=== PATIENT | male | born 1965 | race Caucasian/White ===

== ENCOUNTER 2017-06-18 07:02 | Day surgery (SDC) | payer MEDICARE, OTHER ==
[~2017-06-18 07:02] MED LIST: Lactated Ringers 1,000 ML IV SCH
[2017-06-18] MEDS ORDERED: Midazolam 1 MG/ML 2 ML SDV IV ONE (09:00)
[2017-06-18] MEDS ORDERED: Lidocaine 2% 100 MG/5 ML Syringe IVPUSH ONE (09:00)
[2017-06-18] MEDS ORDERED: Ondansetron 4 MG/2 ML SDV IVPUSH ONE (09:00)
[2017-06-18] MEDS ORDERED: Propofol 200 MG/20 ML SDV IV ONE (09:00)
--- NOTE | 2017-06-18 09:44 | PCM.OPNOTE ---
- General Post-Op/Procedure Note Date of Surgery/Procedure: 06/18/17 Operative Procedure(s): egd with bx Findings: gastritis Pre Op Diagnosis: epigastric abd pain Post-Op Diagnosis: gastritis Anesthesia Technique: MAC Primary Surgeon: Nolberto Worrell Anesthesia Provider: Soumya Chavez Pathology: stomach Complications: None Condition: Good Free Text/Narrative:: see dictation
[2017-06-18 10:29] VITALS: BP 112/83
--- NOTE | 2017-06-18 13:53 | OR ---
DATE OF OPERATION: 06/18/2017 SURGEON: Nolberto Worrell MD PROCEDURE PERFORMED: Esophagogastroduodenoscopy with cold forceps biopsy. PREOPERATIVE DIAGNOSIS: Epigastric abdominal pain. POSTOPERATIVE DIAGNOSIS: Gastritis. INDICATIONS FOR PROCEDURE: This is a 51-year-old white male, who has had a history of epigastric abdominal pain. He was offered and accepted an EGD. DESCRIPTION OF PROCEDURE: After an excellent IV sedation was administered, the bite block was inserted. The flexible endoscope was passed without difficulty down the patient's stomach into his esophagus. The stomach was insufflated. Scope was passed through the pylorus to the second portion of the duodenum and slowly withdrawn. Following findings were noted. Duodenum unremarkable. Stomach demonstrates diffuse gastritis. Multiple biopsies were taken. GE junction measured at 40 cm. Esophagus was unremarkable. The stomach was deflated, scope was removed. The patient tolerated the procedure well, and was taken to recovery room in good condition. /[id number] /JASONL
== END 2017-06-18 10:16 | disposition home or self-care (01) ==
LOC: FB.SDS 07:02
PROVIDERS: ATTEND Surgery
DX: K29.50 Unspecified chronic gastritis without bleeding (principal); E11.9 Type 2 diabetes mellitus without complications; F41.9 Anxiety disorder, unspecified; G89.4 Chronic pain syndrome; I10 Essential (primary) hypertension; Z68.36 Body mass index [BMI] 36.0-36.9, adult; K21.9 Gastro-esophageal reflux disease without esophagitis; N40.0 Benign prostatic hyperplasia without lower urinary tract symptoms; F33.2 Major depressive disorder, recurrent severe without psychotic features; Z79.84 Long term (current) use of oral hypoglycemic drugs; Z79.899 Other long term (current) drug therapy; Z88.8 Allergy status to other drugs, medicaments and biological substances; Z90.49 Acquired absence of other specified parts of digestive tract; Z98.890 Other specified postprocedural states; F17.210 Nicotine dependence, cigarettes, uncomplicated
CPT/HCPCS: 00740; 43239; 82962; J2250; J2405; J2704; J7120; 88305; 88342

== ENCOUNTER 2017-08-01 20:41 | Emergency (ER) | payer MEDICARE, OTHER ==
[2017-08-01] MEDS ORDERED: Ondansetron 8 MG Tab.DIS PO ONE (21:07)
[2017-08-01] MEDS ORDERED: Famotidine 20 MG Tab PO ONE (21:07)
--- NOTE | 2017-08-01 21:09 | EDM.PDOC ---
ED HPI GENERAL MEDICAL PROBLEM - General Stated Complaint: HIGH BLOOD SUGAR Time Seen by Provider: 08/01/17 20:41 Source of Information: Reports: Patient, Family - History of Present Illness INITIAL COMMENTS - FREE TEXT/NARRATIVE: 52 y.o.w.m with multiple medical issues, including NIDDM was seen by his PMD today for a cortisone shot injection in right shoulder. Pt was advised to come the ed if his BS is above 400 and if he is symptomatic. Pt's BS was >400 and he felt nauseated and had epigastric pain, occ dizziness. His accu check was 360 here in the ed. No vomiting. Pt a has h/o of unsteady gate, which is going on for years. He is using a cane. No other acute medical issues at this time. BP 107/71 Pulse 94 RR 16 Pulse ox 97% on RA Onset: Today Onset Date: 08/01/17 Onset Time: 15:00 Duration: Hour(s):, Intermittent Location: Reports: Generalized Quality: Reports: Ache, Burning Severity: Mild Improves with: Reports: Rest Worsens with: Reports: Movement Context: Reports: Activity, Exercise, Other (cortison injection left shoulder) Associated Symptoms: Reports: No Other Symptoms Right Upper Arm Pain Score (Numeric/FACES): 4 - Related Data Allergies Allergy/AdvReac Type Severity Reaction Status Date / Time tramadol Allergy Abdominal Verified 08/01/17 20:51 Pain Home Meds: Home Meds Simvastatin 20 mg PO BEDTIME 09/15/14 [History] traZODone 100 mg PO BEDTIME 11/27/14 [History] amLODIPine [Norvasc] 10 mg PO BEDTIME 04/22/16 [History] glipiZIDE [Glipizide ER] 10 mg PO DAILY 04/22/16 [History] Albuterol/Ipratropium [DuoNeb 3.0-0.5 MG/3 ML] 3 ml IH Q6H PRN 06/17/17 [History ] Aspirin 325 mg PO DAILY 06/17/17 [History] Hydrochlorothiazide/Lisinopril [Lisinopril-HCTZ 20-25 MG] 1 tab PO DAILY [History] Esomeprazole Magnesium [Nexium] 20 mg PO 08/01/17 [History] Past Medical History HEENT History: Reports: Impaired Vision Cardiovascular History: Reports: High Cholesterol, Hypertension, SOB on Exertion Respiratory History: Reports: Asthma, SOB Gastrointestinal History: Reports: GERD Genitourinary History: Reports: Urinary Incontinence Other Genitourinary History: ERECTILE DYSFUNCTION Musculoskeletal History: Reports: Other (See Below) Other Musculoskeletal History: CHRONIC BODY PAIN. RIGHT ANKLE PAIN, BACK, ET NECK PAIN JEAN-CLAUDE. BILATERAL CARPAL TUNNEL SYNDROME Other Neuro History: STATES CONSTANT TREMOR. RESTLESS LEGS . CHRONIC PAIN Psychiatric History: Reports: ADHD, Anxiety, Depression Endocrine/Metabolic History: Reports: Diabetes, Type II Hematologic History: Reports: None Oncologic (Cancer) History: Reports: None Dermatologic History: Reports: None - Infectious Disease History Infectious Disease History: Reports: Chicken Pox - Past Surgical History GI Surgical History: Reports: Cholecystectomy Musculoskeletal Surgical History: Reports: Other (See Below) Other Musculoskeletal Surgeries/Procedures:: NECK FUSION Social & Family History - Family History Family Medical History: Noncontributory - Tobacco Use Smoking Status *Q: Current Every Day Smoker Years of Tobacco use: 35 Packs/Tins Daily: 1.5 Used Tobacco, but Quit: No Second Hand Smoke Exposure: No - Caffeine Use Caffeine Use: Reports: Coffee, Soda - Alcohol Use Days Per Week of Alcohol Use: 4 Number of Drinks Per Day: 6 Total Drinks Per Week: 24 - Recreational Drug Use Recreational Drug Use: No ED ROS GENERAL - Review of Systems Review Of Systems: See Below Constitutional: Reports: No Symptoms HEENT: Reports: No Symptoms Respiratory: Reports: No Symptoms Cardiovascular: Reports: No Symptoms Endocrine: Reports: High Glucose, Polydypsia GI/Abdominal: Reports: Abdominal Pain (epigtsric) Musculoskeletal: Reports: No Symptoms Skin: Reports: No Symptoms Neurological: Reports: No Symptoms Psychiatric: Reports: No Symptoms Hematologic/Lymphatic: Reports: No Symptoms Immunologic: Reports: No Symptoms ED EXAM, GENERAL - Physical Exam Exam: See Below Exam Limited By: Physical Impairment General Appearance: Alert, WD/WN, Mild Distress, Obese Eye Exam: Bilateral Eye: Normal Inspection Ears: Normal External Exam Ear Exam: Bilateral Ear: Auricle Normal Nose: Normal Inspection, Normal Mucosa Throat/Mouth: Normal Inspection Head: Atraumatic, Normocephalic Neck: Normal Inspection, Supple, Non-Tender, Full Range of Motion Respiratory/Chest: No Respiratory Distress, Lungs Clear, Normal Breath Sounds Cardiovascular: Normal Peripheral Pulses, Regular Rate, Rhythm, No Edema Peripheral Pulses: 1+: Femoral (L), Femoral (R) GI/Abdominal: Tender (epigstic, minor symptoms) (Male) Exam: Deferred Rectal (Males) Exam: Deferred Back Exam: Normal Inspection Extremities: Normal Inspection, Normal Range of Motion, Non-Tender, No Pedal Edema Neurological: Alert, Oriented, CN II-XII Intact, Normal Cognition, Abnormal Gait (walks with a cane) Psychiatric: Normal Affect, Normal Mood Skin Exam: Warm, Dry, Intact, Normal Color, No Rash Lymphatic: No Adenopathy Course - Vital Signs Text/Narrative:: 52 y.o.w.m with multiple medical issues, including NIDDM was seen by his PMD today for a cortisone shot injection in right shoulder. Pt was advised to come the ed if his BS is above 400 and if he is symptomatic. Pt's BS was >400 and he felt nauseated and had epigastric pain, occ dizziness, no vomiting. His accu check was 360 here in the ed. No vomiting. Pt a has h/o of unsteady gate, which is going on for years. He is using a cane. No other acute medical issues at this time. BP 107/71 Pulse 94 RR 16 Pulse ox 97% on RA PE: Obese 52 y.o.w.m in NAD with nausea and epigastric pain Labs: Na 126, K 3.8 BUN 24 Cr. 1.4 Glc 391 A1C 10.7 Impression: Hyponatremia, NIDDM with hyperglycemia, noncompliance, elevated HA1C level, Dehydration, H/O unsteady gait (cane) Tx: Regular insulin, NS, Zofran Reexam: Improved, BS was 246mg/dl on D/C, nausea and dizziness subsided Plan: D/C with instructions Last Recorded V/S: Last Vital Signs Temp 36.3 C 08/01/17 23:20 Pulse 94 08/01/17 21:00 Resp 18 08/01/17 23:20 BP 115/78 08/01/17 23:20 Pulse Ox 95 08/01/17 23:20 - Orders/Labs/Meds Labs: Laboratory Tests 08/01/17 08/01/17 08/01/17 Range/Units 20:49 21:18 21:18 WBC 11.1 (4.5-12.0) X10-3/uL RBC 5.05 (4.30-5.75) x10(6)uL Hgb 15.3 (11.5-15.5) g/dL Hct 43.1 (30.0-51.3) % MCV 85.4 (80-96) fL MCH 30.3 (27.7-33.6) pg MCHC 35.5 H (32.2-35.4) g/dL RDW 12.9 (11.5-15.5) % Plt Count 208 (125-369) X10(3)uL MPV 10.3 (7.4-10.4) fL Neut % (Auto) 75.0 (46-82) % Lymph % (Auto) 13.3 (13-37) % Giles % (Auto) 11.1 (4-12) % Eos % (Auto) 0 L (1.0-5.0) % Baso % (Auto) 0 (0-2) % Neut # (Auto) 8.4 H (1.6-8.3) # Lymph # (Auto) 1.5 (0.6-5.0) # Giles # (Auto) 1.2 (0.0-1.3) # Eos # (Auto) 0.0 (0.0-0.8) # Baso # (Auto) 0.0 (0.0-0.2) # Sodium 126 L D (135-145) mmol/L Potassium 3.8 (3.5-5.3) mmol/L Chloride 96 L (100-110) mmol/L Carbon Dioxide 20 L (23-29) mmol/L BUN 24 H D (5-20) mg/dL Creatinine 1.4 H (0.6-1.3) mg/dL Est Cr Clr Drug Dosing TNP Estimated GFR (MDRD) 53 L (>60) BUN/Creatinine Ratio 17.1 (9-20) Glucose 391 H D (80-116) mg/dL POC Glucose 326 H D (80-116) mg/dL Hemoglobin A1c (4.0-6.0) % Calcium 8.5 L (8.6-10.2) mg/dL 08/01/17 08/01/17 08/01/17 Range/Units 21:18 21:58 23:09 WBC (4.5-12.0) X10-3/uL RBC (4.30-5.75) x10(6)uL Hgb (11.5-15.5) g/dL Hct (30.0-51.3) % MCV (80-96) fL MCH (27.7-33.6) pg MCHC (32.2-35.4) g/dL RDW (11.5-15.5) % Plt Count (125-369) X10(3)uL MPV (7.4-10.4) fL Neut % (Auto) (46-82) % Lymph % (Auto) (13-37) % Giles % (Auto) (4-12) % Eos % (Auto) (1.0-5.0) % Baso % (Auto) (0-2) % Neut # (Auto) (1.6-8.3) # Lymph # (Auto) (0.6-5.0) # Giles # (Auto) (0.0-1.3) # Eos # (Auto) (0.0-0.8) # Baso # (Auto) (0.0-0.2) # Sodium (135-145) mmol/L Potassium (3.5-5.3) mmol/L Chloride (100-110) mmol/L Carbon Dioxide (23-29) mmol/L BUN (5-20) mg/dL Creatinine (0.6-1.3) mg/dL Est Cr Clr Drug Dosing Estimated GFR (MDRD) (>60) BUN/Creatinine Ratio (9-20) Glucose (80-116) mg/dL POC Glucose 320 H 254 H (80-116) mg/dL Hemoglobin A1c 10.7 H (4.0-6.0) % Calcium (8.6-10.2) mg/dL Meds: Medications Discontinued Medications Generic Name Dose Route Start Last Admin Trade Name Freq PRN Reason Stop Dose Admin Famotidine 20 mg 08/01/17 21:07 08/01/17 21:33 Pepcid PO 08/01/17 21:08 20 mg ONETIME ONE Administration Sodium Chloride 1,000 mls @ 999 mls/hr 08/01/17 21:40 08/01/17 21:15 Normal Saline IV 08/01/17 22:40 999 mls/hr .BOLUS ONE Administration Insulin Human Regular 5 unit 08/01/17 21:21 08/01/17 21:33 Humulin R SUBCUT 08/01/17 21:22 5 units BIDAC STA Administration Protocol Ondansetron HCl 8 mg 08/01/17 21:07 08/01/17 21:32 Zofran Odt PO 08/01/17 21:08 8 mg ONETIME ONE Administration Departure - Departure Time of Disposition: 23:15 Disposition: Home, Self-Care 01 Condition: Good Clinical Impression: Hyponatremia, Diabetes mellitus, Noncompliance, Hyperglycemia, Elevated hemoglobin A1c - Discharge Information Instructions: Hyponatremia, Hyperglycemia, [id number], Dehydration, Adult Referrals: Aram Ballesteros MD [Primary Care Provider] - Forms: ED Department Discharge Additional Instructions: Please increase water intake, please f/u with your doctor in next day or with Urgent care, please check your blood sugar twice daily, please come back if your symptoms get worse acutely.
[2017-08-01] MEDS ORDERED: Insulin Regular, Human 100 Units/ML 3 ML Vial SUBCUT STA (21:21)
[2017-08-01] MEDS ORDERED: Sodium Chloride 0.9% 1,000 ML IV ONE (21:40)
[2017-08-01 23:21] VITALS: BP 115/78
== END 2017-08-01 23:23 | disposition home or self-care (01) ==
LOC: FB.ED 20:41
DX: E11.65 Type 2 diabetes mellitus with hyperglycemia (principal); E87.1 Hypo-osmolality and hyponatremia; E86.0 Dehydration; R79.89 Other specified abnormal findings of blood chemistry; E78.00 Pure hypercholesterolemia, unspecified; I10 Essential (primary) hypertension; J45.909 Unspecified asthma, uncomplicated; F41.9 Anxiety disorder, unspecified; F32.9 Major depressive disorder, single episode, unspecified; F17.210 Nicotine dependence, cigarettes, uncomplicated; Z88.6 Allergy status to analgesic agent
CPT/HCPCS: 36415; 80048; 82962; 83036; 85025; 96365; 96372; 99284; A9270; J1815; J7040; 99283

== ENCOUNTER 2018-02-24 21:31 | Emergency (ER) | payer MEDICARE ==
--- NOTE | 2018-02-24 21:59 | EDM.PDOC ---
ED HPI GENERAL MEDICAL PROBLEM - General Chief Complaint: General Stated Complaint: HBS Time Seen by Provider: 02/24/18 21:31 Source of Information: Reports: Patient, Family History Limitations: Reports: No Limitations - History of Present Illness INITIAL COMMENTS - FREE TEXT/NARRATIVE: 52 y.o.w.m with DM, multiple medical issues, came to the ed with is due frequent urinations, drinking about 30 liters of water a day. Pt was on metformin till 2-3 weeks ago and is shahida on Glipizide 10 mg daily. Pt was told by his PMD he needs to be on insulin. However, pt' travis "can not afford insulin " and the insurance "will not pay insulin" His BS was at home up to 556 today. Pt denied N/V/D or any other constitutional symptoms, no other acute medical Issues at his time. He feels always thirsty, however. BP 122/75 RR 20 Pulse ox 100% temp 36.8 Pulse 85 BPM Onset Date: 02/04/18 Onset Time: 08:00 Duration: Week(s):, Intermittent Location: Reports: Generalized Quality: Reports: Other (frequent urination, drings 30 liters of water a day. ) Severity: Moderate Improves with: Reports: Medication (insulin) Worsens with: Reports: Other (not being omliant) - Related Data Allergies Allergy/AdvReac Type Severity Reaction Status Date / Time tramadol Allergy Stomach Verified 02/24/18 21:55 Upset Home Meds: Home Meds Simvastatin 20 mg PO BEDTIME 09/15/14 [History] amLODIPine [Norvasc] 10 mg PO BEDTIME 04/22/16 [History] glipiZIDE [Glipizide ER] 10 mg PO DAILY 04/22/16 [History] Albuterol/Ipratropium [DuoNeb 3.0-0.5 MG/3 ML] 3 ml IH Q6H PRN 06/17/17 [History ] Aspirin 325 mg PO DAILY 06/17/17 [History] Hydrochlorothiazide/Lisinopril [Lisinopril-HCTZ 20-25 MG] 1 tab PO DAILY [History] Baclofen 10 mg PO BEDTIME 02/24/18 [History] Meloxicam 15 mg PO DAILY 02/24/18 [History] Pantoprazole Sodium [Protonix] 40 mg PO DAILY 02/24/18 [History] predniSONE 20 mg PO DAILY 02/24/18 [History] Past Medical History HEENT History: Reports: Impaired Vision Cardiovascular History: Reports: High Cholesterol, Hypertension, SOB on Exertion Respiratory History: Reports: Asthma, SOB Gastrointestinal History: Reports: GERD Genitourinary History: Reports: Urinary Incontinence Other Genitourinary History: ERECTILE DYSFUNCTION Musculoskeletal History: Reports: Other (See Below) Other Musculoskeletal History: CHRONIC BODY PAIN. RIGHT ANKLE PAIN, BACK, ET NECK PAIN JEAN-CLAUDE. BILATERAL CARPAL TUNNEL SYNDROME Other Neuro History: STATES CONSTANT TREMOR. RESTLESS LEGS . CHRONIC PAIN Psychiatric History: Reports: ADHD, Anxiety, Depression Endocrine/Metabolic History: Reports: Diabetes, Type II Hematologic History: Reports: None Oncologic (Cancer) History: Reports: None Dermatologic History: Reports: None - Infectious Disease History Infectious Disease History: Reports: Chicken Pox - Past Surgical History GI Surgical History: Reports: Cholecystectomy Musculoskeletal Surgical History: Reports: Other (See Below) Other Musculoskeletal Surgeries/Procedures:: NECK FUSION Social & Family History - Family History Family Medical History: Noncontributory - Tobacco Use Smoking Status *Q: Current Every Day Smoker Years of Tobacco use: 35 Packs/Tins Daily: 1.5 Used Tobacco, but Quit: No Second Hand Smoke Exposure: No - Caffeine Use Caffeine Use: Reports: Coffee, Soda - Alcohol Use Days Per Week of Alcohol Use: 4 Number of Drinks Per Day: 6 Total Drinks Per Week: 24 - Recreational Drug Use Recreational Drug Use: No ED ROS GENERAL - Review of Systems Review Of Systems: See Below Constitutional: Reports: No Symptoms HEENT: Reports: No Symptoms Respiratory: Reports: No Symptoms Cardiovascular: Reports: No Symptoms Endocrine: Reports: High Glucose GI/Abdominal: Reports: No Symptoms : Reports: Frequency Musculoskeletal: Reports: No Symptoms Skin: Reports: No Symptoms Neurological: Reports: No Symptoms Psychiatric: Reports: No Symptoms Hematologic/Lymphatic: Reports: No Symptoms Immunologic: Reports: No Symptoms ED EXAM, GENERAL - Physical Exam Exam: See Below Exam Limited By: No Limitations General Appearance: Alert, WD/WN, Mild Distress Eye Exam: Bilateral Eye: Normal Inspection Ears: Normal External Exam Ear Exam: Bilateral Ear: Auricle Normal Nose: Normal Inspection, Normal Mucosa, No Blood Throat/Mouth: Normal Inspection, Normal Lips Head: Atraumatic, Normocephalic Neck: Normal Inspection, Supple, Non-Tender, Full Range of Motion Respiratory/Chest: No Respiratory Distress, Lungs Clear, Normal Breath Sounds, No Accessory Muscle Use, Chest Non-Tender Cardiovascular: Normal Peripheral Pulses, Regular Rate, Rhythm, No Edema, No Gallop, No Rub Peripheral Pulses: 1+: Brachial (R) GI/Abdominal: Normal Bowel Sounds, Soft, Non-Tender, No Organomegaly, No Distention, No Abnormal Bruit, No Mass, Pelvis Stable (Male) Exam: Deferred Rectal (Males) Exam: Deferred Back Exam: Normal Inspection, Full Range of Motion Extremities: Normal Inspection, Normal Range of Motion, Non-Tender Neurological: Alert, Oriented, CN II-XII Intact, Normal Cognition, Normal Gait, No Motor/Sensory Deficits Psychiatric: Normal Affect, Anxious Skin Exam: Warm, Dry, Intact, Normal Color, No Rash Lymphatic: No Adenopathy Course - Vital Signs Text/Narrative:: 52 y.o.w.m with DM, multiple medical issues, came to the ed with is due frequent urinations, drinking about 30 liters of water a day. Pt was on metformin till 2-3 weeks ago and is shahida on Glipizide 10 mg daily. Pt was told by his PMD he needs to be on insulin. However, pt' travis "can not afford insulin " and the insurance "will not pay insulin" His BS was at home up to 556 today. Pt denied N/V/D or any other constitutional symptoms, no other acute medical Issues at his time. He feels always thirsty, however. BP 122/75 RR 20 Pulse ox 100% temp 36.8 Pulse 85 BPM PE: Obese 52 y.o.w.m with multiple medical issues in cluding diabetes, non compliant Labs: WBC 13.9 Neutro 84% Na 125 K 4.4 BS 666 Cl 91 GFR > 60 HGB A1C 10.4. BUN 15 Cr. 1.1 Impression: IDDM with hyperglycemia, Noncompliance. Tx: Insulin, Metformine, PO water, pt refused I.Vs refused admission Reexam: BS was 405 (from 666) Last Recorded V/S: Last Vital Signs Temp 36.6 C 02/24/18 23:00 Pulse 88 02/25/18 00:40 Resp 20 02/25/18 00:40 BP 130/78 02/25/18 00:40 Pulse Ox 98 02/25/18 00:40 - Orders/Labs/Meds Orders: Active Orders 24 hr Category Date Time Status Accu Check [Blood Glucose Check, Bedside] [RC] ONETIME Care 02/24/18 21:42 Active UA W/MICROSCOPIC [URIN] Stat Lab 02/24/18 21:55 Ordered Labs: Laboratory Tests 02/24/18 02/24/18 02/24/18 Range/Units 21:42 21:55 22:00 WBC 13.9 H (4.5-12.0) X10-3/uL RBC 4.95 (4.30-5.75) x10(6)uL Hgb 15.3 (11.5-15.5) g/dL Hct 43.0 (30.0-51.3) % MCV 87.0 (80-96) fL MCH 30.9 (27.7-33.6) pg MCHC 35.6 H (32.2-35.4) g/dL RDW 12.9 (11.5-15.5) % Plt Count 220 (125-369) X10(3)uL MPV 10.2 (7.4-10.4) fL Neut % (Auto) 84.7 H (46-82) % Lymph % (Auto) 9.4 L (13-37) % [place] % (Auto) 5.4 (4-12) % Eos % (Auto) 0 L (1.0-5.0) % Baso % (Auto) 0 (0-2) % Neut # (Auto) 11.8 H (1.6-8.3) # Lymph # (Auto) 1.3 (0.6-5.0) # [place] # (Auto) 0.8 (0.0-1.3) # Eos # (Auto) 0.0 (0.0-0.8) # Baso # (Auto) 0.0 (0.0-0.2) # Sodium (135-145) mmol/L Potassium (3.5-5.3) mmol/L Chloride (100-110) mmol/L Carbon Dioxide (21-32) mmol/L BUN (7-18) mg/dL Creatinine (0.70-1.30) mg/dL Est Cr Clr Drug Dosing mL/min Estimated GFR (MDRD) (>60) BUN/Creatinine Ratio (9-20) Glucose (80-116) mg/dL POC Glucose 477 H* D (80-116) mg/dL Hemoglobin A1c (4.5-6.2) % Calcium (8.6-10.2) mg/dL Urine Color Yellow (YELLOW) Urine Appearance Clear (CLEAR) Urine pH 6.5 (5.0-6.5) Ur Specific [place] 1.010 (1.010-1.025) Urine Protein Negative (NEGATIVE) mg/dL Urine Glucose (UA) >1000 H (NEGATIVE) mg/dL Urine Ketones Negative (NEGATIVE) mg/dL Urine Occult Blood Moderate H (NEGATIVE) Urine Nitrite Negative (NEGATIVE) Urine Bilirubin Negative (NEGATIVE) Urine Urobilinogen Normal (NEGATIVE) mg/dL Ur Leukocyte Esterase Negative (NEGATIVE) Urine RBC 0-5 (0) Urine WBC 0-5 (0) Ur Squamous Epith Cells Rare (NS,R,O) Urine Bacteria Few H (NS) 02/24/18 02/24/18 02/24/18 Range/Units 22:00 22:00 23:16 WBC (4.5-12.0) X10-3/uL RBC (4.30-5.75) x10(6)uL Hgb (11.5-15.5) g/dL Hct (30.0-51.3) % MCV (80-96) fL MCH (27.7-33.6) pg MCHC (32.2-35.4) g/dL RDW (11.5-15.5) % Plt Count (125-369) X10(3)uL MPV (7.4-10.4) fL Neut % (Auto) (46-82) % Lymph % (Auto) (13-37) % [place] % (Auto) (4-12) % Eos % (Auto) (1.0-5.0) % Baso % (Auto) (0-2) % Neut # (Auto) (1.6-8.3) # Lymph # (Auto) (0.6-5.0) # [place] # (Auto) (0.0-1.3) # Eos # (Auto) (0.0-0.8) # Baso # (Auto) (0.0-0.2) # Sodium 125 L (135-145) mmol/L Potassium 4.4 (3.5-5.3) mmol/L Chloride 91 L (100-110) mmol/L Carbon Dioxide 24 (21-32) mmol/L BUN 15 (7-18) mg/dL Creatinine 1.1 (0.70-1.30) mg/dL Est Cr Clr Drug Dosing 81.77 mL/min Estimated GFR (MDRD) > 60 (>60) BUN/Creatinine Ratio 13.6 (9-20) Glucose 641 H* (80-116) mg/dL POC Glucose 471 H* (80-116) mg/dL Hemoglobin A1c 10.4 H (4.5-6.2) % Calcium 8.4 L (8.6-10.2) mg/dL Urine Color (YELLOW) Urine Appearance (CLEAR) Urine pH (5.0-6.5) Ur Specific [place] (1.010-1.025) Urine Protein (NEGATIVE) mg/dL Urine Glucose (UA) (NEGATIVE) mg/dL Urine Ketones (NEGATIVE) mg/dL Urine Occult Blood (NEGATIVE) Urine Nitrite (NEGATIVE) Urine Bilirubin (NEGATIVE) Urine Urobilinogen (NEGATIVE) mg/dL Ur Leukocyte Esterase (NEGATIVE) Urine RBC (0) Urine WBC (0) Ur Squamous Epith Cells (NS,R,O) Urine Bacteria (NS) 02/24/18 02/25/18 02/25/18 Range/Units 23:25 00:26 00:36 WBC (4.5-12.0) X10-3/uL RBC (4.30-5.75) x10(6)uL Hgb (11.5-15.5) g/dL Hct (30.0-51.3) % MCV (80-96) fL MCH (27.7-33.6) pg MCHC (32.2-35.4) g/dL RDW (11.5-15.5) % Plt Count (125-369) X10(3)uL MPV (7.4-10.4) fL Neut % (Auto) (46-82) % Lymph % (Auto) (13-37) % [place] % (Auto) (4-12) % Eos % (Auto) (1.0-5.0) % Baso % (Auto) (0-2) % Neut # (Auto) (1.6-8.3) # Lymph # (Auto) (0.6-5.0) # [place] # (Auto) (0.0-1.3) # Eos # (Auto) (0.0-0.8) # Baso # (Auto) (0.0-0.2) # Sodium (135-145) mmol/L Potassium (3.5-5.3) mmol/L Chloride (100-110) mmol/L Carbon Dioxide (21-32) mmol/L BUN (7-18) mg/dL Creatinine (0.70-1.30) mg/dL Est Cr Clr Drug Dosing mL/min Estimated GFR (MDRD) (>60) BUN/Creatinine Ratio (9-20) Glucose 565 H* (80-116) mg/dL POC Glucose 365 H D 365 H (80-116) mg/dL Hemoglobin A1c (4.5-6.2) % Calcium (8.6-10.2) mg/dL Urine Color (YELLOW) Urine Appearance (CLEAR) Urine pH (5.0-6.5) Ur Specific [place] (1.010-1.025) Urine Protein (NEGATIVE) mg/dL Urine Glucose (UA) (NEGATIVE) mg/dL Urine Ketones (NEGATIVE) mg/dL Urine Occult Blood (NEGATIVE) Urine Nitrite (NEGATIVE) Urine Bilirubin (NEGATIVE) Urine Urobilinogen (NEGATIVE) mg/dL Ur Leukocyte Esterase (NEGATIVE) Urine RBC (0) Urine WBC (0) Ur Squamous Epith Cells (NS,R,O) Urine Bacteria (NS) 02/25/18 Range/Units 00:37 WBC (4.5-12.0) X10-3/uL RBC (4.30-5.75) x10(6)uL Hgb (11.5-15.5) g/dL Hct (30.0-51.3) % MCV (80-96) fL MCH (27.7-33.6) pg MCHC (32.2-35.4) g/dL RDW (11.5-15.5) % Plt Count (125-369) X10(3)uL MPV (7.4-10.4) fL Neut % (Auto) (46-82) % Lymph % (Auto) (13-37) % [place] % (Auto) (4-12) % Eos % (Auto) (1.0-5.0) % Baso % (Auto) (0-2) % Neut # (Auto) (1.6-8.3) # Lymph # (Auto) (0.6-5.0) # [place] # (Auto) (0.0-1.3) # Eos # (Auto) (0.0-0.8) # Baso # (Auto) (0.0-0.2) # Sodium (135-145) mmol/L Potassium (3.5-5.3) mmol/L Chloride (100-110) mmol/L Carbon Dioxide (21-32) mmol/L BUN (7-18) mg/dL Creatinine (0.70-1.30) mg/dL Est Cr Clr Drug Dosing mL/min Estimated GFR (MDRD) (>60) BUN/Creatinine Ratio (9-20) Glucose 402 H* D (80-116) mg/dL POC Glucose (80-116) mg/dL Hemoglobin A1c (4.5-6.2) % Calcium (8.6-10.2) mg/dL Urine Color (YELLOW) Urine Appearance (CLEAR) Urine pH (5.0-6.5) Ur Specific [place] (1.010-1.025) Urine Protein (NEGATIVE) mg/dL Urine Glucose (UA) (NEGATIVE) mg/dL Urine Ketones (NEGATIVE) mg/dL Urine Occult Blood (NEGATIVE) Urine Nitrite (NEGATIVE) Urine Bilirubin (NEGATIVE) Urine Urobilinogen (NEGATIVE) mg/dL Ur Leukocyte Esterase (NEGATIVE) Urine RBC (0) Urine WBC (0) Ur Squamous Epith Cells (NS,R,O) Urine Bacteria (NS) Meds: Medications Discontinued Medications Generic Name Dose Route Start Last Admin Trade Name Freq PRN Reason Stop Dose Admin Sodium Chloride 1,000 mls @ 999 mls/hr 02/24/18 22:36 02/24/18 23:26 Normal Saline IV 02/24/18 23:36 Not Given .BOLUS ONE Insulin Human Regular 100 unit 02/24/18 22:21 02/24/18 22:38 Humulin R SUBCUT 02/24/18 22:22 10 units ONETIME STA Administration Insulin Human Regular 10 unit 02/24/18 23:44 02/24/18 23:49 Humulin R SUBCUT 02/24/18 23:45 10 units BIDAC STA Administration Metformin HCl 1,000 mg 02/24/18 23:06 02/24/18 23:14 Glucophage PO 02/24/18 23:07 1,000 mg ONETIME STA Administration Departure - Departure Time of Disposition: 00:56 Disposition: Home, Self-Care 01 Clinical Impression: IDDM (insulin dependent diabetes mellitus) Hyperglycemia due to type 2 diabetes mellitus Qualifiers: Diabetes mellitus fci insulin use: unspecified fci insulin use status Qualified Code(s): E11.65 - Type 2 diabetes mellitus with hyperglycemia - Discharge Information Referrals: Aram Balletseros MD [Primary Care Provider] - Forms: ED Department Discharge Additional Instructions: Please f/u in am with your PMD regarding Insulin prescriptions. Please f/u with an edocinologist. come back if your symptoms gte worse. - My Orders Last 24 Hours: My Active Orders 02/24/18 21:42 Accu Check [Blood Glucose Check, Bedside] [RC] ONETIME 02/24/18 21:55 UA W/MICROSCOPIC [URIN] Stat - Assessment/Plan Last 24 Hours: My Active Orders 02/24/18 21:42 Accu Check [Blood Glucose Check, Bedside] [RC] ONETIME 02/24/18 21:55 UA W/MICROSCOPIC [URIN] Stat
[2018-02-24] MEDS ORDERED: Insulin Regular, Human 100 Units/ML 3 ML Vial SUBCUT STA ×2 (22:21→23:44)
[2018-02-24] MEDS ORDERED: Sodium Chloride 0.9% 1,000 ML IV ONE (22:36)
[2018-02-24] MEDS ORDERED: metFORMIN 500 MG Tab PO STA (23:06)
[2018-02-25 02:20] VITALS: BP 130/78
== END 2018-02-25 01:10 | disposition home or self-care (01) ==
LOC: FB.ED 21:31
DX: E11.9 Type 2 diabetes mellitus without complications (principal); F17.210 Nicotine dependence, cigarettes, uncomplicated; I10 Essential (primary) hypertension; Z88.5 Allergy status to narcotic agent; Z79.899 Other long term (current) drug therapy
CPT/HCPCS: 36415; 80048; 81001; 82947; 82962; 83036; 85025; A9270; J1815; 99283

== ENCOUNTER 2018-05-11 20:05 | Emergency (ER) | payer MEDICARE ==
[2018-05-11] MEDS ORDERED: valACYclovir 500 MG Tab PO ONE (20:39)
[2018-05-11] MEDS ORDERED: predniSONE 20 MG Tab PO ONE (20:39)
--- NOTE | 2018-05-11 20:48 | EDM.PDOC ---
ED HPI GENERAL MEDICAL PROBLEM - General Chief Complaint: General Stated Complaint: facial numbness right side Time Seen by Provider: 05/11/18 20:05 Source of Information: Reports: Patient, Family History Limitations: Reports: No Limitations - History of Present Illness INITIAL COMMENTS - FREE TEXT/NARRATIVE: 52 y.o.w.m with a h/o IDDM, [id number] to the ed with his after 12 hours of a right sided facial droop. Pt woke up with right facial numbness. No trauma, no N/V/D no focal extremity weakness. Pt denies H/O espino. No dizziness , He has bilat ear pain as well and is using Q tips to clean his ears. Pt is a poor historian. BP 174/93 pulse 84 Temp 98.8 pulse ox 96% RR 24. Onset Date: 05/11/18 Onset Time: 07:00 Duration: Hour(s):, Getting Worse, Intermittent Location: Reports: Face Quality: Reports: Dull Severity: Mild Improves with: Reports: None Worsens with: Reports: None Context: Reports: Other Associated Symptoms: Reports: No Other Symptoms - Related Data Allergies Allergy/AdvReac Type Severity Reaction Status Date / Time tramadol Allergy Stomach Verified 02/24/18 21:55 Upset Home Meds: Home Meds Simvastatin 20 mg PO BEDTIME 09/15/14 [History] amLODIPine [Norvasc] 10 mg PO BEDTIME 04/22/16 [History] glipiZIDE [Glipizide ER] 10 mg PO DAILY 04/22/16 [History] Albuterol/Ipratropium [DuoNeb 3.0-0.5 MG/3 ML] 3 ml IH Q6H PRN 06/17/17 [History ] Aspirin 325 mg PO DAILY 06/17/17 [History] Hydrochlorothiazide/Lisinopril [Lisinopril-HCTZ 20-25 MG] 1 tab PO DAILY [History] Baclofen 10 mg PO BEDTIME 02/24/18 [History] Meloxicam 15 mg PO DAILY 02/24/18 [History] Pantoprazole Sodium [Protonix] 40 mg PO DAILY 02/24/18 [History] predniSONE 20 mg PO DAILY 02/24/18 [History] Hydrocort/Neomycin/Polymyxin B [Cortisporin Otic Soln] 3 drop .XX TID #10 bottle 05/11/18 [Rx] predniSONE 60 mg PO DAILY #5 tab 05/11/18 [Rx] valACYclovir [Valtrex] 500 mg PO BID #10 tab 05/11/18 [Rx] Past Medical History HEENT History: Reports: Impaired Vision Cardiovascular History: Reports: High Cholesterol, Hypertension, SOB on Exertion Respiratory History: Reports: Asthma, SOB Gastrointestinal History: Reports: GERD Genitourinary History: Reports: Urinary Incontinence Other Genitourinary History: ERECTILE DYSFUNCTION Musculoskeletal History: Reports: Other (See Below) Other Musculoskeletal History: CHRONIC BODY PAIN. RIGHT ANKLE PAIN, BACK, ET NECK PAIN JEAN-CLAUDE. BILATERAL CARPAL TUNNEL SYNDROME Other Neuro History: STATES CONSTANT TREMOR. RESTLESS LEGS . CHRONIC PAIN Psychiatric History: Reports: ADHD, Anxiety, Depression Endocrine/Metabolic History: Reports: Diabetes, Type II Hematologic History: Reports: None Oncologic (Cancer) History: Reports: None Dermatologic History: Reports: None - Infectious Disease History Infectious Disease History: Reports: Chicken Pox - Past Surgical History GI Surgical History: Reports: Cholecystectomy Musculoskeletal Surgical History: Reports: Other (See Below) Other Musculoskeletal Surgeries/Procedures:: NECK FUSION Social & Family History - Family History Family Medical History: Noncontributory - Caffeine Use Caffeine Use: Reports: Coffee, Soda ED ROS GENERAL - Review of Systems Review Of Systems: See Below Constitutional: Reports: No Symptoms HEENT: Reports: No Symptoms Respiratory: Reports: No Symptoms Cardiovascular: Reports: No Symptoms Endocrine: Reports: No Symptoms GI/Abdominal: Reports: No Symptoms : Reports: No Symptoms Musculoskeletal: Reports: No Symptoms Skin: Reports: No Symptoms Neurological: Reports: Numbness (right face) Psychiatric: Reports: No Symptoms Hematologic/Lymphatic: Reports: No Symptoms Immunologic: Reports: No Symptoms ED EXAM, GENERAL - Physical Exam Exam: See Below Exam Limited By: No Limitations General Appearance: Alert, WD/WN, Mild Distress, Obese Eye Exam: Right Eye: Periorbital Changes (unable to close the right eye in full) Ears: Other (Ke Otitis externa) Ear Exam: Bilateral Ear: Auricle Normal, Erythema Nose: Normal Inspection Throat/Mouth: Normal Lips, Normal Voice, No Airway Compromise, Other (poor dentition) Head: Atraumatic, Other (right facial droop) Neck: Normal Inspection, Supple Respiratory/Chest: No Respiratory Distress, Lungs Clear, Normal Breath Sounds, Chest Non-Tender Cardiovascular: Normal Peripheral Pulses, Regular Rate, Rhythm, No Edema, No Gallop, No Murmur Peripheral Pulses: 1+: Brachial (R) GI/Abdominal: Normal Bowel Sounds, Soft, Non-Tender, No Organomegaly, No Abnormal Bruit, No Mass (Male) Exam: Deferred Rectal (Males) Exam: Deferred Back Exam: Normal Inspection, Full Range of Motion Extremities: Normal Inspection, Normal Range of Motion, Non-Tender, No Pedal Edema Neurological: Alert, Oriented, CN II-XII Intact, Normal Cognition, Abnormal Gait (is using a cane, no new finding) Psychiatric: Normal Affect, Normal Mood Skin Exam: Warm, Dry, Intact, Normal Color, No Rash Lymphatic: No Adenopathy Course - Vital Signs Text/Narrative:: 52 y.o.w.m with a h/o IDDM, [id number] to the ed with his after 12 hours of a right sided facial droop. Pt woke up with right facial numbness. No trauma, no N/V/D no focal extremity weakness. Pt denies H/O espino. No dizziness , He has bilat ear pain as well and is using Q tips to clean his ears. Pt is a poor historian. Pt did not take his PM meds. BP 174/93 pulse 84 Temp 98.8 pulse ox 96% RR 24. PE: WNWD W M with right facial droop and unable to close his right eye in full. Imaging: CT head: NAD Labs: GLC was 334. GFR > 60 HA1C 8.6 Ca 8.4 UA: U Glc was >1000 Impression: Young's palsy, IDDM, HTN. Otitis externa bilat. Tx: Prednison, Valacyclovir, Reg Insulin Reexam: Improved Plan: D/C with instructions. - Orders/Labs/Meds Orders: Active Orders 24 hr Category Date Time Status Head wo Cont [CT] Stat Exams 05/11/18 20:29 Taken UA W/MICROSCOPIC [URIN] Stat Lab 05/11/18 21:00 Ordered Labs: Laboratory Tests 05/11/18 05/11/18 05/11/18 Range/Units 20:50 20:50 20:50 WBC 8.4 (4.5-12.0) X10-3/uL RBC 5.27 (4.30-5.75) x10(6)uL Hgb 15.3 (11.5-15.5) g/dL Hct 45.5 (30.0-51.3) % MCV 86.3 (80-96) fL MCH 29.1 (27.7-33.6) pg MCHC 33.7 (32.2-35.4) g/dL RDW 13.0 (11.5-15.5) % Plt Count 200 (125-369) X10(3)uL MPV 9.5 (7.4-10.4) fL Neut % (Auto) 63.2 (46-82) % Lymph % (Auto) 26.9 (13-37) % [place] % (Auto) 7.1 (4-12) % Eos % (Auto) 2 (1.0-5.0) % Baso % (Auto) 1 (0-2) % Neut # (Auto) 5.3 (1.6-8.3) # Lymph # (Auto) 2.2 (0.6-5.0) # [place] # (Auto) 0.6 (0.0-1.3) # Eos # (Auto) 0.2 (0.0-0.8) # Baso # (Auto) 0.1 (0.0-0.2) # Sodium 137 D (135-145) mmol/L Potassium 3.9 (3.5-5.3) mmol/L Chloride 100 D (100-110) mmol/L Carbon Dioxide 27 (21-32) mmol/L BUN 11 (7-18) mg/dL Creatinine 1.0 (0.70-1.30) mg/dL Est Cr Clr Drug Dosing TNP Estimated GFR (MDRD) > 60 (>60) BUN/Creatinine Ratio 11.0 (9-20) Glucose 334 H (80-116) mg/dL Hemoglobin A1c (4.5-6.2) % Lactic Acid 2.0 (0.4-2.2) mmol/L Calcium 8.5 L (8.6-10.2) mg/dL Urine Color (YELLOW) Urine Appearance (CLEAR) Urine pH (5.0-6.5) Ur Specific [place] (1.010-1.025) Urine Protein (NEGATIVE) mg/dL Urine Glucose (UA) (NEGATIVE) mg/dL Urine Ketones (NEGATIVE) mg/dL Urine Occult Blood (NEGATIVE) Urine Nitrite (NEGATIVE) Urine Bilirubin (NEGATIVE) Urine Urobilinogen (NEGATIVE) mg/dL Ur Leukocyte Esterase (NEGATIVE) Urine RBC (0) Urine WBC (0) Ur Squamous Epith Cells (NS,R,O) Urine Bacteria (NS) 05/11/18 05/11/18 Range/Units 20:50 21:00 WBC (4.5-12.0) X10-3/uL RBC (4.30-5.75) x10(6)uL Hgb (11.5-15.5) g/dL Hct (30.0-51.3) % MCV (80-96) fL MCH (27.7-33.6) pg MCHC (32.2-35.4) g/dL RDW (11.5-15.5) % Plt Count (125-369) X10(3)uL MPV (7.4-10.4) fL Neut % (Auto) (46-82) % Lymph % (Auto) (13-37) % [place] % (Auto) (4-12) % Eos % (Auto) (1.0-5.0) % Baso % (Auto) (0-2) % Neut # (Auto) (1.6-8.3) # Lymph # (Auto) (0.6-5.0) # [place] # (Auto) (0.0-1.3) # Eos # (Auto) (0.0-0.8) # Baso # (Auto) (0.0-0.2) # Sodium (135-145) mmol/L Potassium (3.5-5.3) mmol/L Chloride (100-110) mmol/L Carbon Dioxide (21-32) mmol/L BUN (7-18) mg/dL Creatinine (0.70-1.30) mg/dL Est Cr Clr Drug Dosing Estimated GFR (MDRD) (>60) BUN/Creatinine Ratio (9-20) Glucose (80-116) mg/dL Hemoglobin A1c 8.6 H (4.5-6.2) % Lactic Acid (0.4-2.2) mmol/L Calcium (8.6-10.2) mg/dL Urine Color Yellow (YELLOW) Urine Appearance Clear (CLEAR) Urine pH 6.0 (5.0-6.5) Ur Specific [place] 1.015 (1.010-1.025) Urine Protein Negative (NEGATIVE) mg/dL Urine Glucose (UA) >1000 H (NEGATIVE) mg/dL Urine Ketones Negative (NEGATIVE) mg/dL Urine Occult Blood Negative (NEGATIVE) Urine Nitrite Negative (NEGATIVE) Urine Bilirubin Negative (NEGATIVE) Urine Urobilinogen Normal (NEGATIVE) mg/dL Ur Leukocyte Esterase Negative (NEGATIVE) Urine RBC 0-5 (0) Urine WBC 0-5 (0) Ur Squamous Epith Cells Rare (NS,R,O) Urine Bacteria Rare H (NS) Meds: Medications Discontinued Medications Generic Name Dose Route Start Last Admin Trade Name Freq PRN Reason Stop Dose Admin Insulin Human Regular 7 unit 05/11/18 21:18 05/11/18 21:27 Humulin R SUBCUT 05/11/18 21:19 7 units ONETIME STA Administration Prednisone 60 mg 05/11/18 20:39 05/11/18 21:02 Prednisone PO 05/11/18 20:40 60 mg ONETIME ONE Administration Valacyclovir HCl 500 mg 05/11/18 20:39 05/11/18 21:02 Valtrex PO 05/11/18 20:40 500 mg ONETIME ONE Administration Departure - Departure Time of Disposition: 21:33 Disposition: Home, Self-Care 01 Condition: Good Clinical Impression: Young's palsy - Discharge Information Prescriptions: Hydrocort/Neomycin/Polymyxin B [Cortisporin Otic Soln] 3 drop .XX TID #10 bottle predniSONE 60 mg PO DAILY #5 tab valACYclovir [Valtrex] 500 mg PO BID #10 tab Instructions: Young Palsy, Adult, Steps to Quit Smoking, [id number] Referrals: Aram Ballesteros MD [Primary Care Provider] - Forms: ED Department Discharge Additional Instructions: Please take the medications (valacyclovir and prednison) as recommended, Please check your blood sugar at least 2-3 times daily. Please follow sliding scale, Please apply cortisporin ear drops to both ears 3 drops 3 times in each ear, please f/u with your PMD> Please come back if your symptoms get worse acutely - My Orders Last 24 Hours: My Active Orders 05/11/18 20:29 Head wo Cont [CT] Stat 05/11/18 21:00 UA W/MICROSCOPIC [URIN] Stat - Assessment/Plan Last 24 Hours: My Active Orders 05/11/18 20:29 Head wo Cont [CT] Stat 05/11/18 21:00 UA W/MICROSCOPIC [URIN] Stat
[2018-05-11] MEDS ORDERED: Insulin Regular, Human 100 Units/ML 3 ML Vial SUBCUT STA (21:18)
[2018-05-12 03:57] VITALS: BP 158/76
== END 2018-05-11 22:00 | disposition home or self-care (01) ==
LOC: FB.ED 20:05
DX: G51.0 Bell's palsy (principal); I10 Essential (primary) hypertension; H60.93 Unspecified otitis externa, bilateral; E11.9 Type 2 diabetes mellitus without complications; Z79.4 Long term (current) use of insulin; Z79.899 Other long term (current) drug therapy
CPT/HCPCS: 36415; 70450; 80048; 81001; 83036; 83605; 85025; 99284; A9270; J1815

== ENCOUNTER 2018-12-31 11:01 | Emergency (ER) | payer MEDICARE ==
--- NOTE | 2018-12-31 11:50 | EDM.PDOC ---
ED HPI GENERAL MEDICAL PROBLEM - General Chief Complaint: General Stated Complaint: CHEST PRESSURE Time Seen by Provider: 12/31/18 11:15 Source of Information: Reports: Patient History Limitations: Reports: No Limitations - History of Present Illness INITIAL COMMENTS - FREE TEXT/NARRATIVE: This 53-year-old smoker. Man with history incontinence dyslipidemia kidney stone COPD headaches hypertension for drug compliance insulin-dependent diabetic with documented gastritis 06/18/17 EGD with negative helical pile lower and also Young's palsy diagnosed 05/18/70 with chronic body pain arthritis Patient attended by his . Complaint discomfort in his chest. Patient was seen in the clinic today and sent to ED for further evaluation. Second chief complaint was light-colored stool. He said more burning in his chest. Chest onset burning was 2:30 AM. And he was restless throughout the night. He has had burning "off and on" for the last 5 days. HE DESCRIBES CHEST SYMPTOMS "STEADY PRESSURE". He has vomited 3 different occasions once last night and every other day for the past 5 days. He's not sure why his vomiting. He states when he goes to bed he feels "woozy". And has discomfort in his chest. He is quite tired. Morning had a glucose of 96." And note this AM his "shakiness of bad he could not hold onto a potato chip ". Normally he runs 300-400 glucose. His glucose this morning was 96. Last night his glucose was 200, he has not changed his insulin dose or medications. abdomen Pain Score (Numeric/FACES): 5 - Related Data Allergies Allergy/AdvReac Type Severity Reaction Status Date / Time tramadol Allergy Stomach Verified 12/31/18 11:15 Upset Home Meds: Home Meds amLODIPine [Norvasc] 10 mg PO DAILY 04/22/16 [History] glipiZIDE [Glipizide ER] 10 mg PO DAILY 04/22/16 [History] Albuterol/Ipratropium [DuoNeb 3.0-0.5 MG/3 ML] 3 ml IH Q6H PRN 06/17/17 [History ] Meloxicam 15 mg PO DAILY 02/24/18 [History] Pantoprazole Sodium [Protonix] 40 mg PO DAILY 02/24/18 [History] Aspirin 81 mg PO DAILY 05/12/18 [History] Escitalopram [Lexapro] 20 mg PO DAILY 05/12/18 [History] Insulin Glarg,Human.Rec.Analog [Lantus] 24 unit SUBCUT BEDTIME 05/12/18 [History ] Simvastatin [Zocor] 20 mg PO BEDTIME 05/12/18 [History] SitaGLIPtin [Januvia] 100 mg PO DAILY 05/12/18 [History] Past Medical History HEENT History: Reports: Impaired Vision Cardiovascular History: Reports: High Cholesterol, Hypertension, SOB on Exertion Respiratory History: Reports: Asthma, COPD, SOB Gastrointestinal History: Reports: GERD Genitourinary History: Reports: Urinary Incontinence Other Genitourinary History: ERECTILE DYSFUNCTION Musculoskeletal History: Reports: Other (See Below) Other Musculoskeletal History: CHRONIC BODY PAIN. RIGHT ANKLE PAIN, BACK, ET NECK PAIN JEAN-CLAUDE. BILATERAL CARPAL TUNNEL SYNDROME Neurological History: Reports: Neuropathy, Diabetic Other Neuro History: STATES CONSTANT TREMOR. RESTLESS LEGS . CHRONIC PAIN Psychiatric History: Reports: ADHD, Anxiety, Depression Endocrine/Metabolic History: Reports: Diabetes, Type II Hematologic History: Reports: None Oncologic (Cancer) History: Reports: None Dermatologic History: Reports: None - Infectious Disease History Infectious Disease History: Reports: Chicken Pox - Past Surgical History GI Surgical History: Reports: Cholecystectomy Musculoskeletal Surgical History: Reports: Other (See Below) Other Musculoskeletal Surgeries/Procedures:: NECK FUSION Social & Family History - Family History Family Medical History: Noncontributory - Caffeine Use Caffeine Use: Reports: Coffee, Soda ED ROS GENERAL - Review of Systems Review Of Systems: ROS reveals no pertinent complaints other than HPI. ED EXAM, GENERAL - Physical Exam Exam: See Below Exam Limited By: No Limitations General Appearance: Alert, WD/WN Eye Exam: Bilateral Eye: Normal Inspection Ears: Normal External Exam, Normal Canal, Hearing Grossly Normal, Normal TMs Ear Exam: Bilateral Ear: Auricle Normal, Canal Normal, TM normal Nose: Normal Inspection Throat/Mouth: Normal Inspection, Normal Lips, Normal Teeth, Normal Gums, Normal Oropharynx, Normal Voice Head: Atraumatic, Normocephalic Neck: Normal Inspection, Supple, Non-Tender, Other (I attempted to perform trachea temperature evaluated for tracheal deviation but he is quite sensitive to this digital manual manipulation of his neck and I desisted because this was quite uncomfortable for him) Respiratory/Chest: No Respiratory Distress, Lungs Clear, Normal Breath Sounds, Chest Non-Tender Cardiovascular: Normal Peripheral Pulses, Regular Rate, Rhythm, No Edema, No Gallop, No JVD, No Murmur, No Rub, Other (Normal pedal pulses) Peripheral Pulses: 1+: Radial (L), Radial (R), Dorsalis Pedis (L), Dorsalis Pedis (R) GI/Abdominal: Normal Bowel Sounds, Soft, Non-Tender, No Organomegaly, No Distention, No Abnormal Bruit, Other (Marked increased abdominal girth) (Male) Exam: No Hernia, Deferred Rectal (Males) Exam: Deferred Back Exam: Normal Inspection Extremities: Normal Inspection, Normal Range of Motion, Non-Tender, No Pedal Edema, Normal Capillary Refill Neurological: Alert, Oriented, CN II-XII Intact, Normal Cognition, Normal Gait, Normal Reflexes, No Motor/Sensory Deficits Psychiatric: Normal Affect, Other (Somewhat limited because of his depression) EKG INTERPRETATION EKG Date: 12/31/18 Time: 11:20 Rhythm: NSR [place]: Normal P-Wave: Present QRS: Normal ST-T: Normal QT: Normal EKG Interpretation Comments: Normal sinus rhythm inferior infarct old Q's in leads 3 aVF Course - Vital Signs Last Recorded V/S: Last Vital Signs Temp Pulse 72 12/31/18 11:10 Resp 20 12/31/18 11:10 BP 155/99 H 12/31/18 11:10 Pulse Ox 97 12/31/18 11:10 - Orders/Labs/Meds Orders: Active Orders 24 hr Category Date Time Status EKG Documentation Completion [RC] ASDIRECTED Care 12/31/18 11:09 Active CXR [Chest 2V] [CR] Stat Exams 12/31/18 12:06 Taken EKG 12 Lead [EK] Routine Ther 12/31/18 11:09 Ordered Labs: Laboratory Tests 12/31/18 12/31/18 12/31/18 Range/Units 12:04 12:04 12:04 WBC 8.2 (4.5-12.0) X10-3/uL RBC 5.34 (4.30-5.75) x10(6)uL Hgb 16.3 H (11.5-15.5) g/dL Hct 46.1 (30.0-51.3) % MCV 86.3 (80-96) fL MCH 30.5 (27.7-33.6) pg MCHC 35.3 (32.2-35.4) g/dL RDW 13.0 (11.5-15.5) % Plt Count 233 (125-369) X10(3)uL MPV 9.1 (7.4-10.4) fL Neut % (Auto) 63.8 (46-82) % Lymph % (Auto) 25.7 (13-37) % [place] % (Auto) 8.6 (4-12) % Eos % (Auto) 1 (1.0-5.0) % Baso % (Auto) 1 (0-2) % Neut # (Auto) 5.3 (1.6-8.3) # Lymph # (Auto) 2.1 (0.6-5.0) # [place] # (Auto) 0.7 (0.0-1.3) # Eos # (Auto) 0.1 (0.0-0.8) # Baso # (Auto) 0.0 (0.0-0.2) # Sodium 140 (135-145) mmol/L Potassium 4.0 (3.5-5.3) mmol/L Chloride 105 D (100-110) mmol/L Carbon Dioxide 27 (21-32) mmol/L BUN 15 (7-18) mg/dL Creatinine 1.1 (0.70-1.30) mg/dL Est Cr Clr Drug Dosing 80.81 mL/min Estimated GFR (MDRD) > 60 (>60) BUN/Creatinine Ratio 13.6 (9-20) Glucose 142 H D (80-116) mg/dL Hemoglobin A1c (4.5-6.2) % Calcium 8.7 (8.6-10.2) mg/dL Total Bilirubin 0.4 (0.1-1.3) mg/dL AST 21 (5-25) IU/L ALT 49 H (12-36) U/L Alkaline Phosphatase 93 (56-112) IU/L Troponin I (<0.017-0.056) ng/mL NT-Pro-B Natriuret Pep 19 (<=125) pg/mL Total Protein 6.9 (6.0-8.0) g/dL Albumin 3.9 (3.5-5.2) g/dL Globulin 3.0 g/dL Albumin/Globulin Ratio 1.3 Urine Color (YELLOW) Urine Appearance (CLEAR) Urine pH (5.0-6.5) Ur Specific Protivin (1.010-1.025) Urine Protein (NEGATIVE) mg/dL Urine Glucose (UA) (NEGATIVE) mg/dL Urine Ketones (NEGATIVE) mg/dL Urine Occult Blood (NEGATIVE) Urine Nitrite (NEGATIVE) Urine Bilirubin (NEGATIVE) Urine Urobilinogen (NEGATIVE) mg/dL Ur Leukocyte Esterase (NEGATIVE) Urine RBC (0) Urine WBC (0) Ur Squamous Epith Cells (NS,R,O) Urine Bacteria (NS) Urine Mucus (NS) 12/31/18 12/31/18 12/31/18 Range/Units 12:04 12:04 12:09 WBC (4.5-12.0) X10-3/uL RBC (4.30-5.75) x10(6)uL Hgb (11.5-15.5) g/dL Hct (30.0-51.3) % MCV (80-96) fL MCH (27.7-33.6) pg MCHC (32.2-35.4) g/dL RDW (11.5-15.5) % Plt Count (125-369) X10(3)uL MPV (7.4-10.4) fL Neut % (Auto) (46-82) % Lymph % (Auto) (13-37) % [place] % (Auto) (4-12) % Eos % (Auto) (1.0-5.0) % Baso % (Auto) (0-2) % Neut # (Auto) (1.6-8.3) # Lymph # (Auto) (0.6-5.0) # Wilkes # (Auto) (0.0-1.3) # Eos # (Auto) (0.0-0.8) # Baso # (Auto) (0.0-0.2) # Sodium (135-145) mmol/L Potassium (3.5-5.3) mmol/L Chloride (100-110) mmol/L Carbon Dioxide (21-32) mmol/L BUN (7-18) mg/dL Creatinine (0.70-1.30) mg/dL Est Cr Clr Drug Dosing mL/min Estimated GFR (MDRD) (>60) BUN/Creatinine Ratio (9-20) Glucose (80-116) mg/dL Hemoglobin A1c 7.4 H (4.5-6.2) % Calcium (8.6-10.2) mg/dL Total Bilirubin (0.1-1.3) mg/dL AST (5-25) IU/L ALT (12-36) U/L Alkaline Phosphatase (56-112) IU/L Troponin I < 0.017 L (<0.017-0.056) ng/mL NT-Pro-B Natriuret Pep (<=125) pg/mL Total Protein (6.0-8.0) g/dL Albumin (3.5-5.2) g/dL Globulin g/dL Albumin/Globulin Ratio Urine Color Yellow (YELLOW) Urine Appearance Clear (CLEAR) Urine pH 7.0 H (5.0-6.5) Ur Specific Protivin 1.010 (1.010-1.025) Urine Protein Negative (NEGATIVE) mg/dL Urine Glucose (UA) Normal (NEGATIVE) mg/dL Urine Ketones Negative (NEGATIVE) mg/dL Urine Occult Blood Negative (NEGATIVE) Urine Nitrite Negative (NEGATIVE) Urine Bilirubin Small H (NEGATIVE) Urine Urobilinogen 8 H (NEGATIVE) mg/dL Ur Leukocyte Esterase Negative (NEGATIVE) Urine RBC 0-5 (0) Urine WBC 0-5 (0) Ur Squamous Epith Cells Occasional (NS,R,O) Urine Bacteria Rare H (NS) Urine Mucus Moderate H (NS) Departure - Departure Time of Disposition: 11:20 (Chest x-ray mild cardiomegaly, troponin neg, COPD induced increased hemoglobin. His yellow or light brown stools or function of his taking Tums. His chest pressure are a reflection of his diabetic neuropathy /also coronary artery disease, abd pressure of his obesity on his lungs. He is obese and is increased blood pressure with diabetes increase the risk for any artery disease and is hypertension for COPD. Plan double his citalopram dose. Follow-up with in 1 week. He is very depressed. He is not suicidal. He complained that his is going out babysitting. She notes "this nothing different than other years." And he feels lonely and misses her presence. He is not suicidal. "Burning" in his chest probably is a manifestation of acid peptic disease.However, could be aq form atypical angina. If presists may need stress test. When he has the burning in his chest he is going to double (bod) his Pantoprazole also. Follow-up with the theresa.) Disposition: Home, Self-Care 01 Condition: Good Clinical Impression: Chest pressure, Insulin dependent diabetes mellitus, Obesity (BMI 30-39.9), Atypical angina Gastritis Qualifiers: Gastritis type: unspecified gastritis Chronicity: unspecified Gastritis bleeding: without bleeding Qualified Code(s): K29.70 - Gastritis, unspecified, without bleeding COPD (chronic obstructive pulmonary disease) Qualifiers: COPD type: unspecified COPD Qualified Code(s): J44.9 - Chronic obstructive pulmonary disease, unspecified Depression Qualifiers: Depression Type: unspecified Qualified Code(s): F32.9 - Major depressive disorder, single episode, unspecified - Discharge Information *PRESCRIPTION DRUG MONITORING PROGRAM REVIEWED*: Not Applicable *COPY OF PRESCRIPTION DRUG MONITORING REPORT IN PATIENT CHARLES: Not Applicable Referrals: Aram Ballesteros MD [Primary Care Provider] - Forms: ED Department Discharge - My Orders Last 24 Hours: My Active Orders 12/31/18 11:09 EKG Documentation Completion [RC] ASDIRECTED EKG 12 Lead [EK] Routine 12/31/18 12:06 CXR [Chest 2V] [CR] Stat - Assessment/Plan Last 24 Hours: My Active Orders 12/31/18 11:09 EKG Documentation Completion [RC] ASDIRECTED EKG 12 Lead [EK] Routine 12/31/18 12:06 CXR [Chest 2V] [CR] Stat
[2018-12-31 12:23] LABS: HEMOGLOBIN A1C 7.4 % (4.5-6.2)
[2018-12-31 14:19] VITALS: BP 153/85
== END 2018-12-31 13:35 | disposition home or self-care (01) ==
LOC: FB.ED 11:01
DX: I20.9 Angina pectoris, unspecified (principal); F41.9 Anxiety disorder, unspecified; F32.9 Major depressive disorder, single episode, unspecified; K21.9 Gastro-esophageal reflux disease without esophagitis; J44.9 Chronic obstructive pulmonary disease, unspecified; E11.40 Type 2 diabetes mellitus with diabetic neuropathy, unspecified; E66.9 Obesity, unspecified; K29.70 Gastritis, unspecified, without bleeding; Z88.5 Allergy status to narcotic agent; Z79.4 Long term (current) use of insulin; Z79.899 Other long term (current) drug therapy; Z79.84 Long term (current) use of oral hypoglycemic drugs; Z68.34 Body mass index [BMI] 34.0-34.9, adult
CPT/HCPCS: 36415; 71046; 80053; 81001; 83036; 83880; 84484; 85025; 93005; 93010; 99285; 99285-25

== ENCOUNTER 2021-08-28 13:52 | Emergency (ER) | payer MEDICARE ==
[2021-08-28] MEDS ORDERED: Sodium Chloride 0.9% 10 ML Syringe FLUSH PRN (14:06)
[2021-08-28 14:27] VITALS: PULSE 76
[2021-08-28] MEDS ORDERED: Losartan 100 MG Tab PO STA (14:30)
[2021-08-28] MEDS ORDERED: amLODIPine 10 MG Tab PO STA (14:30)
--- NOTE | 2021-08-28 14:41 | EDM.PDOC ---
ED HPI GENERAL MEDICAL PROBLEM - General Chief Complaint: General Stated Complaint: high bp Time Seen by Provider: 08/28/21 13:55 Source of Information: Reports: Patient, Family History Limitations: Reports: No Limitations - History of Present Illness INITIAL COMMENTS - FREE TEXT/NARRATIVE: Patient presented to the ED from the [facility] because of chest pressure, coughing and dyspnea for the past 3 months. The chest pressure comes and goes, 5/10. He also have dry cough, no fever, chills. There is no N/V/D. He has a significant cardiac history-CAD,IN,CHF and pulmonary history-COPD. Left Neck Pain Score (Numeric/FACES): 8 - Related Data Allergies Allergy/AdvReac Type Severity Reaction Status Date / Time tramadol Allergy Stomach Verified 12/31/18 11:15 Upset Home Meds: Home Meds amLODIPine [Norvasc] 10 mg PO DAILY 04/22/16 [History] glipiZIDE [Glipizide ER] 10 mg PO DAILY 04/22/16 [History] Albuterol/Ipratropium [DuoNeb 3.0-0.5 MG/3 ML] 3 ml IH Q6H PRN 06/17/17 [History] Meloxicam 15 mg PO DAILY 02/24/18 [History] Pantoprazole Sodium [Protonix] 40 mg PO DAILY 02/24/18 [History] Aspirin 81 mg PO DAILY 05/12/18 [History] Escitalopram [Lexapro] 20 mg PO DAILY 05/12/18 [History] Insulin Glarg,Human.Rec.Analog [Lantus] 24 unit SUBCUT BEDTIME 05/12/18 [History] Simvastatin [Zocor] 20 mg PO BEDTIME 05/12/18 [History] SitaGLIPtin [Januvia] 100 mg PO DAILY 05/12/18 [History] Past Medical History HEENT History: Reports: Impaired Vision Cardiovascular History: Reports: High Cholesterol, Hypertension, SOB on Exertion Respiratory History: Reports: Asthma, COPD, SOB Gastrointestinal History: Reports: GERD Genitourinary History: Reports: Urinary Incontinence Other Genitourinary History: ERECTILE DYSFUNCTION Musculoskeletal History: Reports: Other (See Below) Other Musculoskeletal History: CHRONIC BODY PAIN. RIGHT ANKLE PAIN, BACK, ET NECK PAIN JEAN-CLAUDE. BILATERAL CARPAL TUNNEL SYNDROME Neurological History: Reports: Neuropathy, Diabetic Other Neuro History: STATES CONSTANT TREMOR. RESTLESS LEGS . CHRONIC PAIN Psychiatric History: Reports: ADHD, Anxiety, Depression Endocrine/Metabolic History: Reports: Diabetes, Type II Hematologic History: Reports: None Oncologic (Cancer) History: Reports: None Dermatologic History: Reports: None - Infectious Disease History Infectious Disease History: Reports: Chicken Pox - Past Surgical History GI Surgical History: Reports: Cholecystectomy Musculoskeletal Surgical History: Reports: Other (See Below) Other Musculoskeletal Surgeries/Procedures:: NECK FUSION Social & Family History - Family History Family Medical History: No Pertinent Family History - Tobacco Use Tobacco Use Status *Q: Current Every Day Tobacco User Years of Tobacco use: 1 Packs/Tins Daily: 40 - Caffeine Use Caffeine Use: Reports: Soda - Recreational Drug Use Recreational Drug Use: No ED ROS GENERAL - Review of Systems Review Of Systems: See Below Constitutional: Reports: No Symptoms HEENT: Reports: No Symptoms Respiratory: Reports: Shortness of Breath, Cough Cardiovascular: Reports: No Symptoms Endocrine: Reports: No Symptoms GI/Abdominal: Reports: No Symptoms : Reports: No Symptoms Musculoskeletal: Reports: No Symptoms Skin: Reports: No Symptoms Neurological: Reports: No Symptoms Psychiatric: Reports: No Symptoms ED EXAM, GENERAL - Physical Exam Exam: See Below Exam Limited By: No Limitations General Appearance: Alert, No Apparent Distress Eye Exam: Bilateral Eye: PERRL Ears: Normal External Exam, Normal Canal Nose: Normal Inspection, Normal Mucosa, No Blood Throat/Mouth: Normal Inspection, Normal Lips, Normal Teeth, Normal Gums Head: Atraumatic, Normocephalic Neck: Normal Inspection, Supple, Non-Tender, Full Range of Motion Respiratory/Chest: No Respiratory Distress, Lungs Clear, Normal Breath Sounds, No Accessory Muscle Use, Chest Non-Tender Cardiovascular: Normal Peripheral Pulses, Regular Rate, Rhythm, No Edema, No Gallop, No JVD, No Murmur, No Rub GI/Abdominal: Normal Bowel Sounds, Soft, Non-Tender, No Organomegaly, No Distention, No Abnormal Bruit, No Mass Back Exam: Normal Inspection, Full Range of Motion Extremities: Normal Inspection, Normal Range of Motion, Non-Tender, No Pedal Edema, Normal Capillary Refill Neurological: Alert, Oriented, CN II-XII Intact, Normal Cognition, Normal Reflexes, No Motor/Sensory Deficits Psychiatric: Normal Affect #1 Interpretation EKG Date: 08/28/21 Time: 13:57 Rhythm: NSR Rate (Beats/Min): 78 [place]: Normal P-Wave: Present QRS: Normal ST-T: Normal QT: Normal MN/PQ Interval: 146 Comparison: No Change EKG Interpretation Comments: NSR Old inferior infarct No changes c/w EKG 04/22/16 Course - Vital Signs Text/Narrative:: Lab/EKG,CXR was reviewed and discussed with patient and his spouse Losartan 100 mg PO X 1 Amlodipine 10 mg PO x1 Hydralazine 20 mg IM x1 GI cocktail PO x1 Last Recorded V/S: Last Vital Signs Temp 36.3 C 08/28/21 13:52 Pulse 76 08/28/21 13:52 Resp 20 08/28/21 13:52 BP 150/96 H 08/28/21 14:42 Pulse Ox 95 08/28/21 13:52 - Orders/Labs/Meds Labs: Laboratory Tests 08/28/21 08/28/21 08/28/21 Range/Units 14:30 14:30 14:30 WBC 8.3 (3.2-10.1) x10-3/uL RBC 5.11 (3.90-5.90) x10(6)uL Hgb 14.8 (12.9-17.7) g/dL Hct 43.9 (38.3-50.1) % MCV 86.0 (80.8-98.7) fL MCH 29.0 (27.0-33.3) pg MCHC 33.8 (28.7-35.3) g/dL RDW 14.0 (12.4-15.0) % Plt Count 195 (117-477) x10(3)uL MPV 8.5 (6.7-11.0) fL Neut % (Auto) 65.5 (40.3-71.8) % Lymph % (Auto) 22.9 (15.8-45.3) % [place] % (Auto) 8.9 (5.5-15.2) % Eos % (Auto) 1.9 (0.1-6.8) % Baso % (Auto) 0.8 (0.3-3.8) % Neut # (Auto) 5.5 (1.7-6.9) x10-3/uL Lymph # (Auto) 1.9 (0.5-4.5) x10-3/uL [place] # (Auto) 0.7 (0.0-1.2) x10-3/uL Eos # (Auto) 0.2 (0.0-0.6) x10-3/uL Baso # (Auto) 0.1 (0.0-0.3) x10-3/uL Sodium 138 (135-145) mmol/L Potassium 4.2 (3.5-5.3) mmol/L Chloride 102 (100-110) mmol/L Carbon Dioxide 27 (21-32) mmol/L BUN 14 (7-18) mg/dL Creatinine 1.0 (0.70-1.30) mg/dL Est Cr Clr Drug Dosing 85.76 mL/min Estimated GFR (MDRD) > 60 (>60) BUN/Creatinine Ratio 14.0 (9-20) Glucose 165 H (80-116) mg/dL Calcium 9.1 (8.6-10.2) mg/dL Total Bilirubin 0.7 (0.1-1.3) mg/dL AST 10 D (5-25) IU/L ALT 30 D (12-36) U/L Alkaline Phosphatase 76 (56-112) IU/L Troponin I 7.4 (4.0-60.3) pg/mL NT-Pro-B Natriuret Pep 45 (<=125) pg/mL Total Protein 6.7 (6.0-8.0) g/dL Albumin 3.8 (3.5-5.2) g/dL Globulin 2.9 g/dL Albumin/Globulin Ratio 1.3 Meds: Medications Discontinued Medications Generic Name Dose Route Start Last Admin Trade Name Freq PRN Reason Stop Dose Admin Amlodipine Besylate 10 mg 08/28/21 14:30 08/28/21 14:42 Amlodipine 10 Mg Tab PO 08/28/21 14:31 10 mg NOW STA Administration Al Hydroxide/Mg Hydroxide 15 0 ml 08/28/21 15:16 08/28/21 15:19 ml/ Lidocaine HCl 15 ml PO 08/28/21 15:17 30 ml ONETIME ONE Administration Hydralazine HCl 20 mg 08/28/21 15:16 08/28/21 15:20 Hydralazine 20 Mg/Ml Sdv IM 08/28/21 15:17 20 mg NOW STA Administration Losartan Potassium 100 mg 08/28/21 14:30 08/28/21 14:42 Losartan 100 Mg Tab PO 08/28/21 14:31 100 mg NOW STA Administration Sodium Chloride 10 ml 08/28/21 14:06 Sodium Chloride 0.9% 10 Ml Syringe FLUSH ASDIRECTED PRN Keep Vein Open Departure - Departure Time of Disposition: 15:15 Disposition: Home, Self-Care 01 Condition: Good Clinical Impression: Hypertensive crisis COPD (chronic obstructive pulmonary disease) Qualifiers: COPD type: unspecified COPD Qualified Code(s): J44.9 - Chronic obstructive pulmonary disease, unspecified - Discharge Information Instructions: Chronic Obstructive Pulmonary Disease, [id number], Hypertension, Adult, [id number] Referrals: Aram Ballesteros MD [Primary Care Provider] - Forms: ED Department Discharge Additional Instructions: Please read discharge instructions on hypertension and COPD Start taking your Losartan and Amlodipine tomorrow Low salt/Low fat diet, exercise and weight loss Record your BP for a week an hour after taking your losartan and amlodipine in the morning and bring it during your visit with Dr Ballesteros Sepsis Event Note (ED) - Evaluation Sepsis Screening Result: No Definite Risk
[2021-08-28 14:42] VITALS: BP 150/96
[2021-08-28] MEDS ORDERED: Alum Hydroxide/Mag Hydroxide 15 ML, Lidocaine 2% 15 ML PO ONE ×2 (15:16)
[2021-08-28] MEDS ORDERED: hydrALAZINE 20 MG/ML SDV IM STA (15:16)
--- NOTE | 2021-08-28 15:44 | CR ---
INDICATION: Cough. Dyspnea. CHEST, ONE VIEW: AP portable upright view of the chest 08/28/21 was compared with 12/31/18 and 04/22/16. Spinal fusion again noted, lower cervical spine. Heart, mediastinum and bony thorax were unremarkable. Overlying EKG leads are noted. A definite active infiltrate or effusion was not identified. IMPRESSION: No definite acute process. MTDD
== END 2021-08-28 16:06 | disposition home or self-care (01) ==
LOC: FB.ED 13:52
DX: J44.9 Chronic obstructive pulmonary disease, unspecified (principal); I25.10 Atherosclerotic heart disease of native coronary artery without angina pectoris; I25.2 Old myocardial infarction; I16.9 Hypertensive crisis, unspecified; I11.0 Hypertensive heart disease with heart failure; I50.9 Heart failure, unspecified; E78.00 Pure hypercholesterolemia, unspecified; E11.40 Type 2 diabetes mellitus with diabetic neuropathy, unspecified; Z88.5 Allergy status to narcotic agent; Z72.0 Tobacco use
CPT/HCPCS: 36415; 71045; 80053; 83880; 84484; 85025; 93005; 96372; 99285; A9270; J0360

== ENCOUNTER 2021-10-05 07:47 | Emergency (ER) | payer MEDICARE ==
[2021-10-05 08:05] VITALS: BP 118/77; PULSE 111
--- NOTE | 2021-10-05 08:28 | EDM.PDOC ---
ED HPI GENERAL MEDICAL PROBLEM - General Chief Complaint: Abdominal Pain Stated Complaint: INTESTINAL PAIN Time Seen by Provider: 10/05/21 08:05 Source of Information: Reports: Patient, Family History Limitations: Reports: No Limitations - History of Present Illness INITIAL COMMENTS - FREE TEXT/NARRATIVE: Patient presented to the ED because of constipation x 5 days. He tried OTC laxatives without relief. There is no abdominal pain, N/V. No fever, chills or urinary s/s. Lower Abdomen Pain Score (Numeric/FACES): 8 - Related Data Allergies Allergy/AdvReac Type Severity Reaction Status Date / Time tramadol Allergy Stomach Verified 12/31/18 11:15 Upset Home Meds: Home Meds amLODIPine [Norvasc] 10 mg PO DAILY 04/22/16 [History] glipiZIDE [Glipizide ER] 10 mg PO DAILY 04/22/16 [History] Albuterol/Ipratropium [DuoNeb 3.0-0.5 MG/3 ML] 3 ml IH Q6H PRN 06/17/17 [Hi story] Meloxicam 15 mg PO DAILY 02/24/18 [History] Pantoprazole Sodium [Protonix] 40 mg PO DAILY 02/24/18 [History] Aspirin 81 mg PO DAILY 05/12/18 [History] Escitalopram [Lexapro] 20 mg PO DAILY 05/12/18 [History] Insulin Glarg,Human.Rec.Analog [Lantus] 24 unit SUBCUT BEDTIME 05/12/18 [History] Simvastatin [Zocor] 20 mg PO BEDTIME 05/12/18 [History] SitaGLIPtin [Januvia] 100 mg PO DAILY 05/12/18 [History] KCl/Na Sulf,Bicarb,Cl/PEG 3351 [GoLytely] 4,000 ml PO ONETIME #1 gallon 10/05/21 [Rx] Ondansetron [Zofran ODT] 4 mg PO Q4H PRN #5 tab.dis 10/05/21 [Rx] Past Medical History HEENT History: Reports: Impaired Vision Cardiovascular History: Reports: High Cholesterol, Hypertension, SOB on Exertion Respiratory History: Reports: Asthma, COPD, SOB Gastrointestinal History: Reports: GERD Genitourinary History: Reports: Urinary Incontinence Other Genitourinary History: ERECTILE DYSFUNCTION Musculoskeletal History: Reports: Other (See Below) Other Musculoskeletal History: CHRONIC BODY PAIN. RIGHT ANKLE PAIN, BACK, ET NECK PAIN JEAN-CLAUDE. BILATERAL CARPAL TUNNEL SYNDROME Neurological History: Reports: Neuropathy, Diabetic Other Neuro History: STATES CONSTANT TREMOR. RESTLESS LEGS . CHRONIC PAIN Psychiatric History: Reports: ADHD, Anxiety, Depression Endocrine/Metabolic History: Reports: Diabetes, Type II Hematologic History: Reports: None Oncologic (Cancer) History: Reports: None Dermatologic History: Reports: None - Infectious Disease History Infectious Disease History: Reports: Chicken Pox - Past Surgical History GI Surgical History: Reports: Cholecystectomy Musculoskeletal Surgical History: Reports: Other (See Below) Other Musculoskeletal Surgeries/Procedures:: NECK FUSION Social & Family History - Family History Family Medical History: No Pertinent Family History - Tobacco Use Tobacco Use Status *Q: Current Every Day Tobacco User Years of Tobacco use: 30 Packs/Tins Daily: 1 - Caffeine Use Caffeine Use: Reports: Soda ED ROS GENERAL - Review of Systems Review Of Systems: See Below Constitutional: Reports: No Symptoms HEENT: Reports: No Symptoms Respiratory: Reports: No Symptoms Cardiovascular: Reports: No Symptoms Endocrine: Reports: No Symptoms GI/Abdominal: Reports: Constipation : Reports: No Symptoms Musculoskeletal: Reports: No Symptoms Skin: Reports: No Symptoms Neurological: Reports: No Symptoms Psychiatric: Reports: No Symptoms ED EXAM, GI/ABD - Physical Exam Exam: See Below Exam Limited By: No Limitations General Appearance: Alert, No Apparent Distress Ears: Normal External Exam, Normal Canal Nose: Normal Inspection, Normal Mucosa Throat/Mouth: Normal Inspection, Normal Lips, Normal Teeth Head: Atraumatic, Normocephalic Neck: Normal Inspection, Supple, Non-Tender, Full Range of Motion Respiratory/Chest: No Respiratory Distress, Lungs Clear, Normal Breath Sounds, No Accessory Muscle Use, Chest Non-Tender Cardiovascular: Normal Peripheral Pulses, Regular Rate, Rhythm, No Edema, No Gallop, No JVD, No Murmur GI/Abdominal Exam: Normal Bowel Sounds, Soft, Non-Tender, No Distention, No Abnormal Bruit Extremities: Normal Inspection, Normal Range of Motion, Non-Tender, No Pedal Edema, Normal Capillary Refill Neurological: Alert, Oriented, CN II-XII Intact, Normal Cognition, Normal Reflexes, No Motor/Sensory Deficits Psychiatric: Normal Affect, Normal Mood Course - Vital Signs Text/Narrative:: Abd xray-see reult Last Recorded V/S: Last Vital Signs Temp 36.4 C 10/05/21 07:55 Pulse 111 H 10/05/21 07:55 Resp 22 H 10/05/21 07:55 BP 118/77 10/05/21 07:55 Pulse Ox 100 10/05/21 07:55 - Orders/Labs/Meds Orders: Active Orders 24 hr Category Date Time Status Abdomen 2V AP Flat Upright [CR] Stat Exams 10/05/21 08:05 Ordered Departure - Departure Time of Disposition: 08:45 Disposition: Home, Self-Care 01 Condition: Good Clinical Impression: Constipation - Discharge Information Prescriptions: KCl/Na Sulf,Bicarb,Cl/PEG 3351 [GoLytely] 4,000 ml PO ONETIME #1 gallon Ondansetron [Zofran ODT] 4 mg PO Q4H PRN #5 tab.dis PRN Reason: Nausea Instructions: Constipation, Adult, [id number] Referrals: Aram Ballesteros MD [Primary Care Provider] - Forms: ED Department Discharge Additional Instructions: Please read discharge instructions on constipation Drink at least 2 liters of water daily Zofran ODT 4 mg every 4 hours as needed for nausea Golytely, take as directed Follow up as needed Sepsis Event Note (ED) - Evaluation Sepsis Screening Result: No Definite Risk - Focused Exam Vital Signs: Vital Signs Temp Pulse Resp BP Pulse Ox 10/05/21 07:55 36.4 C 111 H 22 H 118/77 100 - My Orders Last 24 Hours: My Active Orders 10/05/21 08:05 Abdomen 2V AP Flat Upright [CR] Stat - Assessment/Plan Last 24 Hours: My Active Orders 10/05/21 08:05 Abdomen 2V AP Flat Upright [CR] Stat
== END 2021-10-05 08:42 | disposition home or self-care (01) ==
LOC: FB.ED 07:47
DX: K59.00 Constipation, unspecified (principal); E11.9 Type 2 diabetes mellitus without complications; E78.00 Pure hypercholesterolemia, unspecified; I10 Essential (primary) hypertension; J44.9 Chronic obstructive pulmonary disease, unspecified; K21.9 Gastro-esophageal reflux disease without esophagitis; Z72.0 Tobacco use; Z88.5 Allergy status to narcotic agent; Z79.899 Other long term (current) drug therapy; Z79.82 Long term (current) use of aspirin; Z79.4 Long term (current) use of insulin
CPT/HCPCS: 74019; 99283-25

== ENCOUNTER 2021-11-16 10:33 | Emergency (ER) | payer MEDICARE ==
[2021-11-17 10:35] VITALS: BP 159/103; PULSE 103
== END 2021-11-16 11:50 | disposition home or self-care (01) ==
LOC: FB.ED 10:33
DX: K59.00 Constipation, unspecified (principal); E11.9 Type 2 diabetes mellitus without complications; J44.9 Chronic obstructive pulmonary disease, unspecified; E78.00 Pure hypercholesterolemia, unspecified; I10 Essential (primary) hypertension; Z88.5 Allergy status to narcotic agent; Z79.82 Long term (current) use of aspirin; Z79.899 Other long term (current) drug therapy; Z79.4 Long term (current) use of insulin
CPT/HCPCS: 74019; 99283; 99285

== ENCOUNTER 2022-08-20 09:31 | Emergency (ER) | payer MEDICARE ==
[2022-08-20] MEDS ORDERED: Ketorolac 30 MG/ML SDV IM ONE (10:35)
[2022-08-20] MEDS ORDERED: Diazepam 5 MG Tab PO ONE (10:37)
[2022-08-20 13:42] VITALS: BP 142/83; PULSE 74
== END 2022-08-20 13:03 | disposition home or self-care (01) ==
LOC: FB.ED 09:31
DX: S22.31XA Fracture of one rib, right side, initial encounter for closed fracture (principal); E78.00 Pure hypercholesterolemia, unspecified; I10 Essential (primary) hypertension; J44.9 Chronic obstructive pulmonary disease, unspecified; K21.9 Gastro-esophageal reflux disease without esophagitis; E11.40 Type 2 diabetes mellitus with diabetic neuropathy, unspecified; Z72.0 Tobacco use; Z88.5 Allergy status to narcotic agent; Z79.82 Long term (current) use of aspirin; Z79.4 Long term (current) use of insulin; Z79.899 Other long term (current) drug therapy
CPT/HCPCS: 71101; 93005; 93010; 96372; 99282; 99285; A9270; J1885

== ENCOUNTER 2022-08-29 09:48 | Emergency (ER) | payer MEDICARE ==
[2022-08-29] MEDS ORDERED: Ketorolac 30 MG/ML SDV IM ONE (10:11)
[2022-08-29] MEDS ORDERED: Acetaminophen/oxyCODONE 325-5 MG Tab PO PRN (10:11)
[2022-08-29] MEDS: Sodium Chloride 0.9% 10 ML Syringe FLUSH PRN ×2 (11:00→11:02)
[2022-08-29 11:02] LABS: ESTIMATED GFR 70 mL/min (>60)
[2022-08-29 11:50] VITALS: BP 106/78; PULSE 76
[2022-08-29] MEDS ORDERED: Sodium Chloride 0.9% 20 ML SDV FLUSH SCH (14:00)
== END 2022-08-29 11:49 | disposition home or self-care (01) ==
LOC: FB.ED 09:48
DX: S22.31XA Fracture of one rib, right side, initial encounter for closed fracture (principal); J44.9 Chronic obstructive pulmonary disease, unspecified; E78.00 Pure hypercholesterolemia, unspecified; E11.9 Type 2 diabetes mellitus without complications; Z88.5 Allergy status to narcotic agent; Z79.82 Long term (current) use of aspirin; Z79.899 Other long term (current) drug therapy; Z79.4 Long term (current) use of insulin
CPT/HCPCS: 36415; 71045; 80053; 83605; 85025; 86140; 96372; 99283; A9270-GY; J1885; J3490

== ENCOUNTER 2023-07-30 12:53 | Emergency (ER) | payer MEDICARE ==
[2023-07-30 13:41] LABS: BASOPHILS PERCENT AUTO 0.3 % (0.3-3.8); EOSINOPHILS ABSOLUTE AUTO 0.2 x10-3/uL (0.0-0.6); EOSINOPHILS PERCENT AUTO 1.4 % (0.1-6.8); HEMATOCRIT 44.5 % (38.3-50.1); HEMOGLOBIN 15.6 g/dL (12.9-17.7); LYMPHOCYTES ABSOLUTE AUTO 2.1 x10-3/uL (0.5-4.5); LYMPHOCYTES PERCENT AUTO 17.1 % (15.8-45.3); MEAN CORPUSCULAR HEMOGLOBIN 29.8 pg (27.0-33.3); MEAN CORPUSCULAR HGB CONC 35.2 g/dL (28.7-35.3); MEAN CORPUSCULAR VOLUME 84.8 fL (80.8-98.7); MEAN PLATELET VOLUME 9.7 fL (6.7-11.0); MONOCYTES ABSOLUTE AUTO 1.1 x10-3/uL (0.0-1.2); MONOCYTES PERCENT AUTO 8.8 % (5.5-15.2); NEUTROPHILS ABSOLUTE AUTO 9.1 x10-3/uL (1.7-6.9); NEUTROPHILS PERCENT AUTO 72.4 % (40.3-71.8); PLATELET COUNT,PLT 245 x10(3)uL (117-477); RED BLOOD CELL COUNT 5.24 x10(6)uL (3.90-5.90); RED CELL DISTRIBUTION WIDTH 14.3 % (12.4-15.0); WHITE BLOOD CELL COUNT,WBC 12.6 x10-3/uL (3.2-10.1)
[2023-07-30 13:45] LABS: BLOOD UREA NITROGEN,BUN 21 mg/dL (7-18); BUN/CREATININE RATIO 19.1 (9-20); CALCIUM 9.9 mg/dL (8.6-10.2); CARBON DIOXIDE,CO2 25 mmol/L (21-32); CHLORIDE,CL 100 mmol/L (100-110); CREATININE 1.1 mg/dL (0.70-1.30); EST CRCL DRUG DOSING (CG) 76.06 mL/min; ESTIMATED GFR 77 mL/min (>60); GLUCOSE RANDOM 175 mg/dL (80-116); POTASSIUM,K 4.4 mmol/L (3.5-5.3); SODIUM,NA 133 mmol/L (135-145)
[2023-07-30] MEDS ORDERED: Morphine 4 MG/ML VIAL IVPUSH ONE (13:45)
[2023-07-30 13:52] LABS: A/G RATIO 1.2; ALANINE AMINOTRANSFERASE,ALT 39 U/L (12-36); ALBUMIN 4.2 g/dL (3.2-4.6); ALKALINE PHOSPHATASE 104 IU/L (56-112); AMYLASE 38 U/L (25-115); ASPARTATE AMNIOTRANSFERASE,AST 12 IU/L (5-25); BILIRUBIN TOTAL 0.6 mg/dL (0.1-1.3); PROTEIN TOTAL,TP 7.8 g/dL (6.0-8.0)
[2023-07-30 13:54] LABS: LACTIC ACID 1.7 mmol/L (0.4-2.0); TROPONIN I 5.3 pg/mL (4.0-60.3)
[2023-07-30 14:01] LABS: INFLUENZA A NAA NEGATIVE (NEGATIVE); INFLUENZA B NAA NEGATIVE (NEGATIVE)
[2023-07-30 14:02] LABS: CORONAVIRUS COVID-19 NAA NEGATIVE (NEGATIVE)
[2023-07-30] MEDS: Sodium Chloride 0.9% 10 ML Syringe FLUSH PRN ×2 (14:09→16:16)
[2023-07-30] MEDS ORDERED: Iopamidol 755 Mg/ML 100 ML Bottle IV SCH (14:30)
[2023-07-30] MEDS ORDERED: Ketorolac 30 MG/ML SDV IVPUSH ONE (15:52)
[2023-07-30 16:36] VITALS: BP 143/102; PULSE 87
== END 2023-07-30 16:25 | disposition home or self-care (01) ==
LOC: FB.ED 12:53
DX: J44.9 Chronic obstructive pulmonary disease, unspecified (principal); E87.1 Hypo-osmolality and hyponatremia; R09.1 Pleurisy; I10 Essential (primary) hypertension; E78.00 Pure hypercholesterolemia, unspecified; K21.9 Gastro-esophageal reflux disease without esophagitis; E11.40 Type 2 diabetes mellitus with diabetic neuropathy, unspecified; F17.210 Nicotine dependence, cigarettes, uncomplicated; E66.9 Obesity, unspecified; Z68.33 Body mass index [BMI] 33.0-33.9, adult; Z79.899 Other long term (current) drug therapy; Z79.82 Long term (current) use of aspirin; Z88.8 Allergy status to other drugs, medicaments and biological substances; Z20.822 Contact with and (suspected) exposure to COVID-19
CPT/HCPCS: 0240U; 36415; 74177; 80053; 82150; 83605; 83690; 83880; 84484; 85025; 96374; 96375; 99284; J1885; J2270; J3490; Q9967